=== PATIENT | male | born 1960 | race African-American/Black ===

== ENCOUNTER 2023-07-31 14:32 | Inpatient (IN) | payer OTHER ==
[~2023-07-31] VITALS: Ht 180.3 cm; Wt 77.6 kg
[2023-07-31 15:35] LABS: BASOPHILS % 1.2 % (0.0-2.0); EOSINOPHILS % 5.8 % (0.0-5.0); HEMATOCRIT. 41.8 % (42.0-52.0); HEMOGLOBIN. 13.8 g/dL (14.0-18.0); LYMPHOCYTES % 23.1 % (20.0-50.0); MEAN CORPUSCULAR HEMOGLOBIN 26.7 pg (28.0-32.0); MEAN PLATELET VOLUME 7.1 fl (7.4-10.4); MONOCYTES % 13.6 % (2.0-8.0); NEUTROPHILS % 56.3 % (40.0-76.0); PLATELET 334 x1000/uL (130-400); RED BLOOD CELL COUNT 5.17 mill/uL (4.7-6.1); RED CELL DISTRIBUTION WIDTH 16.6 % (11.6-14.6); WHITE BLOOD COUNT 2.8 x1000/uL (4.5-11.0)
[2023-07-31 15:56] LABS: ALANINE AMINOTRANSFERASE 13 IU/L (10-49); ALBUMIN 4.3 g/dL (3.2-4.8); ASPARTATE AMINOTRANSFERASE 16 IU/L (<34); BILIRUBIN TOTAL 1.2 mg/dL (0.1-1.0); CALCIUM 9.4 mg/dL (8.7-10.4); CARBON DIOXIDE 23 mEq/L (21-32); CHLORIDE 107 mEq/L (98-107); CREATININE 0.7 mg/dL (0.6-1.3); GLUCOSE 105 mg/dL (70-105); POTASSIUM 3.3 mEq/L (3.5-5.1); PROTEIN TOTAL 7.6 g/dL (6.0-8.3); SODIUM 140 mEq/L (136-145); UREA NITROGEN BLOOD 9 mg/dL (9-23)
[2023-07-31 16:20] LABS: ETHANOL BLOOD < 10 mg/dL (<10); TROPONIN I HIGH SENSITIVITY < 4 ng/L (3.0-53)
[2023-07-31 17:12] LABS: CLARITY URINE CLOUDY (CLEAR); COLOR URINE DARK YELLOW (YELLOW); GLUCOSE URINE NEGATIVE (NEGATIVE); KETONES URINE TRACE (NEGATIVE); LEUKOCYTE ESTERASE URINE NEGATIVE (NEGATIVE); NITRITE URINE NEGATIVE (NEGATIVE); OCCULT BLOOD URINE 3+ (NEGATIVE); PROTEIN URINE TRACE (NEGATIVE); SPECIFIC GRAVITY URINE 1.024 (1.005-1.030)
[2023-07-31 17:15] VITALS: BP 135/88; PULSE 85; RESP 18; TEMP 97.3
[2023-07-31 17:35] LABS: *AMPHETAMINES SCREEN URINE NEGATIVE (NEGATIVE); *BARBITURATES SCREEN URINE NEGATIVE (NEGATIVE); *BENZODIAZEPINES SCREEN URINE NEGATIVE (NEGATIVE); *COCAINE SCREEN URINE NEGATIVE (NEGATIVE); CANNABINOID URINE SCREEN NEGATIVE (NEGATIVE); ECSTASY MDMA SCREEN URINE NEGATIVE (NEGATIVE); METHADONE URINE SCREEN Neg (NEGATIVE); OPIATES URINE SCREEN NEGATIVE (NEGATIVE); PHENCYCLIDINE URINE SCREEN NEGATIVE (NEGATIVE)
[2023-07-31 17:49] VITALS: BP 135/88; PULSE 85; RESP 18; TEMP 97.3
[2023-07-31 18:00] LABS: BACTERIA URINE TRACE; RBC URINE TNTC /hpf (0-2); SQUAMOUS EPITHELIAL CELL URINE FEW /lpf (RARE/1+); WBC URINE 0-2 /hpf (0-2)
[2023-07-31] MEDS ORDERED: ACETAMINOPHEN 325MG TABLET PO PRN (18:45)
[2023-07-31] MEDS ORDERED: ONDANSETRON HCL 4MG/2ML INJ IV PRN (18:45)
[2023-07-31 20:11] VITALS: BP 140/70; PULSE 91; RESP 19; TEMP 97.7
[2023-08-01 00:08] VITALS: BP 145/91; PULSE 104; RESP 20; TEMP 97.6
[2023-08-01 04:00] VITALS: BP 130/90; PULSE 81; RESP 19; TEMP 97.3
[2023-08-01 08:00] VITALS: BP 136/81; PULSE 70; RESP 18; TEMP 98.7
[2023-08-01] MEDS ORDERED: LORAZEPAM 0.5MG TABLET PO NR (11:00)
[2023-08-01] MEDS: DEXAMETHASONE 4MG TABLET PO SCH ×2 (11:48→17:35)
[2023-08-01 12:00] VITALS: BP 116/85; PULSE 18; PULSE 84; RESP 18; TEMP 98.8
[2023-08-01] MEDS ORDERED: POTASSIUM CHLORIDE 20MEQ TABLET SR PO NR (14:15)
[2023-08-01 16:00] VITALS: BP 131/74; PULSE 83; RESP 18; TEMP 98.2
[2023-08-01] MEDS ORDERED: IPRATROPIUM/ALBUTEROL 0.5-3(2.5)MG/3ML NEB HHN PRN (17:15)
[2023-08-02] MEDS: DEXAMETHASONE 4MG TABLET PO SCH ×4 (01:39→18:00)
[2023-08-02 08:00] VITALS: BP 126/82; PULSE 84; RESP 20; TEMP 98
[2023-08-02 11:50] VITALS: BP 120/95; PULSE 96; RESP 20; TEMP 97.8
[2023-08-02 12:00] VITALS: BP 143/97; PULSE 85; RESP 19; TEMP 98.1
[2023-08-02 16:00] VITALS: BP 135/92; PULSE 90; RESP 17; TEMP 98.1
[2023-08-02 20:00] VITALS: BP 149/100; PULSE 81; RESP 18; TEMP 97.7
[2023-08-03] VITALS: BP 135/88; PULSE 86; RESP 18; TEMP 97.7
[2023-08-03 04:00] VITALS: BP 135/94; PULSE 75; RESP 20; TEMP 97.9
[2023-08-03 08:00] VITALS: BP 114/84; PULSE 86; RESP 16; TEMP 97.5
[2023-08-03 12:00] VITALS: BP 120/79; PULSE 86; RESP 16; TEMP 96.9
[2023-08-03] MEDS: DEXAMETHASONE 4MG TABLET PO SCH ×2 (12:00)
[2023-08-03 16:00] VITALS: BP 140/64; PULSE 75; RESP 16; TEMP 97.3
[2023-08-03 20:00] VITALS: BP 143/60; PULSE 80; RESP 18; TEMP 98
[2023-08-04] MEDS: DEXAMETHASONE 4MG TABLET PO SCH ×3 (05:41→18:00)
[2023-08-04 08:00] VITALS: BP 146/98; PULSE 74; RESP 17; TEMP 97.1
[2023-08-04 12:00] VITALS: BP 140/70; PULSE 80; RESP 17; TEMP 96.5
[2023-08-04 16:00] VITALS: BP 130/89; PULSE 82; RESP 18; TEMP 96.8
[2023-08-04 20:00] VITALS: BP 125/81; PULSE 93; RESP 20; TEMP 97.9
[2023-08-04] MEDS ORDERED: ONDANSETRON 4MG ODT PO PRN (21:41)
[2023-08-05] VITALS: BP 122/85; PULSE 88; RESP 20; TEMP 97.5
[2023-08-05] MEDS: DEXAMETHASONE 4MG TABLET PO SCH ×4 (01:09→18:00)
[2023-08-05 04:00] VITALS: BP 134/83; PULSE 87; RESP 20; TEMP 98.1
[2023-08-05 08:00] VITALS: BP 137/94; PULSE 84; RESP 20; TEMP 97.5
[2023-08-05] MEDS ORDERED: ENOXAPARIN 40MG/0.4ML SYR SUBCUT SCH (09:00)
[2023-08-05 12:00] VITALS: BP 138/95; PULSE 85; RESP 20; TEMP 97.7
[2023-08-05 16:00] VITALS: BP 129/91; PULSE 86; RESP 20; TEMP 98.6
[2023-08-05 17:55] VITALS: BP 129/91; PULSE 86; TEMP 98.6; O2SAT 100
== END 2023-08-05 19:29 | disposition short-term general hospital (02) | DRG 54 ==
LOC: ER 14:50 → 7WST 14:51 → EDBEDREQTM 16:37 → EDBEDREQ 16:37 → EDBEDREQSVC 16:37 → 6WST 08-02 11:47
PROVIDERS: ADMIT Internal Medicine; ATTEND Internal Medicine
DX: C79.31 Secondary malignant neoplasm of brain (principal); G93.41 Metabolic encephalopathy; G93.6 Cerebral edema; G91.9 Hydrocephalus, unspecified; C61 Malignant neoplasm of prostate; I10 Essential (primary) hypertension; E87.6 Hypokalemia; E78.5 Hyperlipidemia, unspecified; E11.9 Type 2 diabetes mellitus without complications; Z79.899 Other long term (current) drug therapy; Z79.4 Long term (current) use of insulin
CPT/HCPCS: 36415; 71045; 80053; 80305; 80320; 81003; 83036; 84484; 85025; 93005; 99291; J1650; J8540; G0480

== ENCOUNTER 2023-08-06 16:30 | Emergency (ER) | payer OTHER ==
[~2023-08-06] VITALS: Ht 177.8 cm; Wt 72.0 kg
[2023-08-06 16:38] VITALS: O2SAT 100
[2023-08-06] MEDS ORDERED: ONDANSETRON HCL 4MG/2ML INJ IV ONE (17:15)
[2023-08-06] MEDS ORDERED: LEVETIRACETAM 500MG PREMIX 100 ML IV ONE ×2 (17:15)
[2023-08-06] MEDS ORDERED: DEXAMETHASONE 4MG/ML 1ML VIAL IV ONE (17:15)
[2023-08-06] MEDS ORDERED: MORPHINE SULFATE 2 MG/ML CPJ (NOT FOR IM USE) IV ONE (17:15)
[2023-08-06 19:40] LABS: BASOPHILS % 0.8 % (0.0-2.0); DIFFERENTIAL COMMENT 0; EOSINOPHILS % 0.9 % (0.0-5.0); HEMATOCRIT. 34.9 % (42.0-52.0); HEMOGLOBIN. 11.8 g/dL (14.0-18.0); LYMPHOCYTES % 15.2 % (20.0-50.0); MEAN CORPUSCULAR HEMOGLOBIN 26.8 pg (28.0-32.0); MEAN CORPUSCULAR HGB CONC 33.9 g/dL (31.0-37.0); MEAN CORPUSCULAR VOLUME 79.2 fL (80.0-94.0); MEAN PLATELET VOLUME 7.2 fl (7.4-10.4); MONOCYTES % 8.2 % (2.0-8.0); NEUTROPHILS % 74.9 % (40.0-76.0); PLATELET 280 x1000/uL (130-400); RED CELL DISTRIBUTION WIDTH 16.1 % (11.6-14.6); WHITE BLOOD COUNT 4.2 x1000/uL (4.5-11.0)
[2023-08-06 19:55] LABS: ALANINE AMINOTRANSFERASE 12 IU/L (10-49); ALBUMIN 3.7 g/dL (3.2-4.8); ASPARTATE AMINOTRANSFERASE 13 IU/L (<34); BILIRUBIN TOTAL 0.9 mg/dL (0.1-1.0); CALCIUM 8.9 mg/dL (8.7-10.4); CARBON DIOXIDE 20 mEq/L (21-32); CHLORIDE 111 mEq/L (98-107); CREATININE 0.6 mg/dL (0.6-1.3); GLUCOSE 109 mg/dL (70-105); PHOSPHORUS 3.9 mg/dL (2.5-4.9); POTASSIUM 2.9 mEq/L (3.5-5.1); PROTEIN TOTAL 6.6 g/dL (6.0-8.3); SODIUM 141 mEq/L (136-145); UREA NITROGEN BLOOD 14 mg/dL (9-23)
[2023-08-06] MEDS ORDERED: MORPHINE SULFATE 2 MG/ML CPJ (NOT FOR IM USE) IV NR (22:15)
[2023-08-06] MEDS ORDERED: ONDANSETRON HCL 4MG/2ML INJ IV NR (22:15)
[2023-08-06 22:16] VITALS: BP 128/86; PULSE 91; RESP 17; TEMP 98.7
[2023-08-06] MEDS ORDERED: DEXAMETHASONE 4MG/ML 1ML VIAL IV NR (22:30)
== END 2023-08-06 22:36 | disposition short-term general hospital (02) ==
LOC: ER 16:30 → EDBEDREQSVC 18:30 → ER 22:36
DX: N13.30 Unspecified hydronephrosis (principal); R41.82 Altered mental status, unspecified; C61 Malignant neoplasm of prostate; C79.31 Secondary malignant neoplasm of brain; I10 Essential (primary) hypertension
CPT/HCPCS: 36415; 74176; 80053; 83735; 84100; 85025; 99285